=== PATIENT | male | born 1980 | race Caucasian/White ===

== ENCOUNTER → 2020-07-31 | Outpatient (CLI) | payer OTHER ==
--- NOTE | 2020-07-31 08:50 | US ---
EXAMINATION TYPE: US abdomen limited DATE OF EXAM: 07/31/2020 COMPARISON: NONE CLINICAL HISTORY: R19.01 Right upper quadrant abdominal swelling, ma. RUQ palpable lump x 2 weeks RUQ at patient's area of concern: 4.9 x 2.2 x 4.1cm superficial isoechoic area seen with peripheral v ascularity IMPRESSION right upper quadrant subcutaneous mass may reflect lipoma. Clinical correlation is advised and consider CT correlation.:
== END | disposition home or self-care (01) ==
LOC: RADUSWWP 08:09
PROVIDERS: ATTEND Family Medicine
DX: R19.01 Right upper quadrant abdominal swelling, mass and lump (principal)
CPT/HCPCS: 76705

== ENCOUNTER → 2020-09-12 | Outpatient (CLI) | payer OTHER ==
--- NOTE | 2020-09-12 10:40 | CT ---
EXAMINATION TYPE: CT abdomen w con DATE OF EXAM: 09/12/2020 COMPARISON: None HISTORY: Benign lipomatous neoplasm, unspecified CT DLP: 4806.90 mGycm CONTRAST: CT scan of the abdomen is performed with Oral Contrast and with IV Contrast, patient injected with 10 0 ml mL of Isovue 300. FINDINGS: LUNG BASES-: No visible nodule. No infiltrate. LIVER/GB: There is evidence of hepatic steatosis with mild hepatomegaly suggested. No calcified gall stones. No space occupying hepatic lesion. Biliary tree is of normal caliber. PANCREAS: No inflammation. No distinct mass. SPLEEN: No splenic enlargement. No lesion seen. ADRENALS: No nodule. No thickening. KIDNEYS/BLADDER: No hydronephrosis. No nephrolithiasis. 1.5 cm left renal cyst identified. Urinary bladder grossly unremarkable. BOWEL: Normal appendix. Normal bowel caliber. No inflammation. LYMPH NODES: No greater than 1cm abdominal or pelvic lymph nodes are appreciated. AORTA: No significant abnormality. OSSEOUS STRUCTURES: No significant abnormality is seen. OTHER: Right upper quadrant subcutaneous lipoma measures approximately 5 x 2.5 x 4.0 cm. No complicat ing factors identified. IMPRESSION: 1. Right upper quadrant lipoma. 2. Fatty liver. 3. Simple cyst left kidney.
== END | disposition home or self-care (01) ==
LOC: RADCTMAIN 08:44
PROVIDERS: ATTEND Family Medicine
DX: D17.5 Benign lipomatous neoplasm of intra-abdominal organs (principal); K76.0 Fatty (change of) liver, not elsewhere classified; N28.1 Cyst of kidney, acquired
CPT/HCPCS: 74160; Q9967

== ENCOUNTER 2021-11-01 22:48 | Emergency (ER) | payer OTHER ==
[2021-11-02] MEDS ORDERED: IBUPROFEN 600 MG TAB PO STA (00:59)
[2021-11-02] MEDS ORDERED: ACETAMINOPHEN TAB 500 MG TAB PO STA (00:59)
[2021-11-02] MEDS ORDERED: SODIUM CHLORIDE 0.9% 50 ML IVPB ONE (02:15)
[2021-11-02] MEDS ORDERED: SOTROVIMAB (EUA) 500 MG in SODIUM CHLORIDE 0.9% 100 ML IVPB ONE (02:15)
--- NOTE | 2021-11-02 02:24 | ED ---
General Adult HPI - General Chief complaint: Shortness of Breath Stated complaint: Low O2, Covid+ Time Seen by Provider: 11/02/21 00:27 Source: patient, RN notes reviewed, old records reviewed Mode of arrival: ambulatory - History of Present Illness Initial comments: Patient is a 40-year-old male with past medical history remarkable for obesity who presents emergency department concern for COVID-19 pneumonia. Symptoms started on Friday. He had a home test positive on that as well. He has been quarantined. Is been monitoring his pulse ox at home, and noticed that at rest of is 89-90% but it improved with movement. His noted fevers. Wants to be evaluated. Was vaccinated for COVID-19 but has not received booster. His no other acute complaint at this time. Son has similar symptoms. Complains primarily of generalized fatigue, as well as URI symptoms. - Related Data Home Medications Medication Instructions Recorded Confirmed Ibuprofen [Advil] 400 mg PO Q6HR PRN 08/21/16 08/21/16 Previous Rx's Medication Instructions Recorded Doxycycline Monohydrate [Monodox] 100 mg PO Q12HR #28 cap 08/23/16 Albuterol Inhaler [Ventolin Hfa 1 puff INHALATION RT-QID #8 gm 11/02/21 Inhaler] Allergies Allergy/AdvReac Type Severity Reaction Status Date / Time banana Allergy Diarrhea Verified 11/02/21 00:08 Beef Containing Products Allergy Diarrhea Verified 11/02/21 00:08 [Beef] chicken derived [Chicken] Allergy Diarrhea Verified 11/02/21 00:08 chocolate flavor Allergy Diarrhea Verified 11/02/21 00:08 coffee (Coffea arabica) Allergy Diarrhea Verified 11/02/21 00:08 corn Allergy Diarrhea Verified 11/02/21 00:08 Fish Containing Products Allergy Diarrhea Verified 11/02/21 00:08 [Fish] orange Allergy Diarrhea Verified 11/02/21 00:08 soybean Allergy Diarrhea Verified 11/02/21 00:08 Sulfa (Sulfonamide Allergy Rash/Hives Verified 11/02/21 00:08 Antibiotics) sulfamethoxazole Allergy Rash/Hives Verified 11/02/21 00:08 [From Bactrim] tomato Allergy Diarrhea Verified 11/02/21 00:08 trimethoprim [From Bactrim] Allergy Rash/Hives Verified 11/02/21 00:08 wheat Allergy Diarrhea Verified 11/02/21 00:08 yeast, dried Allergy Diarrhea Verified 11/02/21 00:08 Review of Systems ROS Statement: Those systems with pertinent positive or pertinent negative responses have been documented in the HPI. Review of Systems: CONST: Endorses fever EYES: Denies blurry vision ENT: Endorses nasal congestion C/V: Denies Chest pain RESP: Denies shortness of breath GI: Denies abdominal pain : Denies dysuria SKIN: Denies rash. MSK: Denies joint pain. NEURO: Denies headache ROS Other: All systems not noted in ROS Statement are negative. Past Medical History Past Medical History: Pneumonia Additional Past Medical History / Comment(s): IBS, MURMUR, WAS ON THYROID MEDS- DR TOOK HIM OFF, MRSA)NOSTRIL) NOVEMBER 2015 AND RT ARM History of Any Multi-Drug Resistant Organisms: MRSA Date of last positivie culture/infection: 08/21/16 MDRO Source:: ABDOMEN Past Surgical History: Hernia Repair Additional Past Surgical History / Comment(s): COLONOSCOPY, EGD, UMB HERNIA Past Anesthesia/Blood Transfusion Reactions: No Reported Reaction Additional Past Anesthesia/Blood Transfusion Reaction / Comment(s): CLAUSTERPHOBIA Past Psychological History: No Psychological Hx Reported Smoking Status: Never smoker Past Alcohol Use History: Occasional Past Drug Use History: None Reported - Past Family History Father Family Medical History: COPD, CVA/TIA, Myocardial Infarction ([place]) Mother Family Medical History: Thyroid Disorder General Exam - General Exam Comments Initial Comments: General: Appears in no acute distress. Febrile. HEAD: Normal with no signs of head trauma. EYES: PERRLA, EOMI, conjunctiva normal, no discharge. ENT: Hearing grossly intact, normal oropharynx. RESPIRATORY: Clear breath sounds bilaterally. No wheezes, rales, or rhonchi. Not hypoxic. No increased work of breathing. C/V: Regular rate and rhythm. S1 and S2 auscultated, no edema, peripheral pulses 2+ and intact throughout ABD: Abd is soft, nontender, nondistended EXT: Normal range of motion, no obvious deformity SKIN: No rashes or lesions observed on exposed skin. NEURO: Alert and oriented 4. Course Vital Signs 11/02/21 11/02/21 11/02/21 00:03 02:00 03:38 Temperature 100.6 F H 98.5 F Pulse Rate 103 H 85 Respiratory 21 20 18 Rate Blood Pressure 119/72 110/67 O2 Sat by Pulse 94 L 91 L Oximetry 11/02/21 05:00 Temperature 98.2 F Pulse Rate 88 Respiratory 18 Rate Blood Pressure 112/65 O2 Sat by Pulse 92 L Oximetry Medical Decision Making - Medical Decision Making Patient is a 40-year-old male who presents for COVID-19 infection. He is not hypoxic. No increased work of breathing. We will repeat COVID-19 lab testing, and it administer monoclonal antibodies, as he does meet criteria based on the BMI as well as being not fully vaccinated. He was in agreement this plan. No further laboratory studies or imaging are required. He will be given Tylenol Motrin for his fever. Covid is positive. He'll receive monoclonal antibody therapy. He tolerated therapy well. I counseled him on quarantine. He was given an albuterol inhaler for home. He was in agreement this plan. I will provide the patient with a prescription for albuterol. I instructed the patient to follow up with their PCP in the next 3 days. I explained that the patient should return to the emergency department if they experience any worsening symptoms. Strict return precautions were discussed with the patient. The patient expressed understanding of these instructions. I answered all questions that the patient had. The patient was discharged home in [facility] with their prescriptions and follow up information. - Lab Data Lab Results 11/02/21 Range/Units 01:18 Coronavirus (PCR) Detected A (Not Detectd) Disposition Clinical Impression: COVID-19 virus infection Disposition: HOME SELF-CARE Condition: Fair Instructions (If sedation given, give patient instructions): Coronavirus Disease 2019 (COVID-19) Prescriptions: Albuterol Inhaler [Ventolin Hfa Inhaler] 1 puff INHALATION RT-QID #8 gm Is patient prescribed a controlled substance at d/c from ED?: No Referrals: Hollie العراقي MD [Primary Care Provider] - 1-2 days
[2021-11-02 04:15] VITALS: RESP 18
[2021-11-02 05:15] VITALS: BP 112/65; PULSE 88; TEMP 98.2
== END 2021-11-02 05:15 | disposition home or self-care (01) ==
LOC: EC 22:48
DX: U07.1 COVID-19 (principal); Z88.1 Allergy status to other antibiotic agents; Z88.2 Allergy status to sulfonamides
CPT/HCPCS: 87635; 99284

== ENCOUNTER → 2022-05-02 | Outpatient (CLI) | payer OTHER ==
--- NOTE | 2022-05-02 12:32 | P.SLEEP ---
History of Present Illness DATE: 05/02/2022 CONSULTATION/NEW PATIENT EVALUATION HISTORY OF PRESENT ILLNESS/SLEEP-WAKE EVALUATION: 41 year old gentleman had been evaluated in the sleep center for possible obstructive sleep apnea hypopnea syndrome. SLEEP SCHEDULE: Usually sleep schedule on weekdays 9 PM to 5:30 AM], during days of 10 PM to 7:30 AM]. FALLING ASLEEP: No problems with falling asleep, although patient has TV set and bedroom]. DURING SLEEP:Patient sleeps with loud snoring and witnessed episodes of sleep apneas by his . chaka wakes up from sleep more than 5 times with 2 episodes of nocturia] No history of hypnogogical hallucinations, sleep paralysis, or cataplexy.Positive history of sweating, restless leg symptoms and heartburn. DURING THE DAY/WAKE STATE: In the morning patient wake up tired, falling asleep during the day. Positive history of irritability, depression, anxiety, claustrophobia episodes]. [place] sleepiness scale i significantly increased to 17] Usually patient doesn't take naps]. PAST MEDICAL HISTORY: Asthma, acid reflux]. PAST SURGICAL HISTORY: Surgical treatment of umbilical hernia]. MEDICATIONS: Tums.]. SOCIAL HISTORY: Negative for] smoking, alcohol consumption occasional. FAMILY HISTORY:Hypertension, heart problems, snoring, cancer, diabetes, restless leg symptoms]. REVIEW OF SYSTEMS:Loud snoring, multiple awakenings from sleep, sleepiness]. No fevers. No double vision. No recent chest pain. No shortness of breath. No abdominal pain. No bleeding episodes. No blood in urine. No seizure episodes. PHYSICAL EXAMINATION: GENERAL: A pleasant patient without any distress. VITAL SIGNS: B 138/84] , HR62] , R 18] , weigh 356] pounds, heigh 5 ]rosy 10 ]inches, body mass inde 51.0] . HEENT: PERRLA, EOMI. Evaluation of oropharynx showed tongue protrudes midline, low position of soft palate Mallampat 4]. NECK: Supple. No JVD. Thyroid is not palpable. 19-1/4] inches in circumference. LUNGS: Clear to percussion and to auscultation. Good air exchange. No wheezing or rhonchi. HEART: S1, S2 regular. No murmurs, gallops or rubs. ABDOMEN: Soft and nontender. Bowel sounds are present. No organomegaly appreciated. Obese EXTREMITIES: No clubbing or cyanosis. MANAGER DISASTER RECOVERY: Awake, alert, and oriented x3. Cranial nerves 2 to 7 intact. There is no fasciculation or atrophy noted. No focal deficits observed. ASSESSMENT: 1. Loud snoring, witnessed sleep apneas, multiple awakenings from sleep, extremely low position of soft palate Mallampati 4, white neck 19-1/4 inches in circumference, significant sleepiness [place] sleepiness scale increased to 17. Obstructive sleep apnea hypopnea syndrome]. 2. Obesity, body mass index 51]. 3 acid reflux]. 4. History of asthma]. 5 status post surgical treatment of umbilical hernia]. 6. Left for arthritis]. PLAN: 1. Polysomnography for evaluation of patient's breathing during sleep. 2. CPAP/BiPAP titration if sleep study confirms obstructive sleep apnea- hypopnea syndrome. 3. Preferable position during sleep on the side. 4. No driving if patient feels any sleepiness. Patient is aware of civil and criminal liability for unsafe driving. 5. Sleep hygiene with regular sleep time for at least 7.5-8 hours. 6. Aggressive losing weight. Thank you very much for referring this patient for consultation. Sincerely, Daniele Jaeger MD, PhD, FAASM. Diplomat of [place] [employer], Sleep Medicine Board by [place] [employer] [place] [employer] [facility] [place] Past Medical History Past Medical History: Pneumonia Additional Past Medical History / Comment(s): IBS, MURMUR, WAS ON THYROID MEDS- TOOK HIM OFF, MRSA)NOSTRIL) NOVEMBER 2015 AND RT ARM History of Any Multi-Drug Resistant Organisms: MRSA Date of last positivie culture/infection: 08/21/16 MDRO Source:: ABDOMEN Past Surgical History: Hernia Repair Additional Past Surgical History / Comment(s): COLONOSCOPY, EGD, UMB HERNIA Past Anesthesia/Blood Transfusion Reactions: No Reported Reaction Additional Past Anesthesia/Blood Transfusion Reaction / Comment(s): CLAUSTERPHOBIA Past Psychological History: No Psychological Hx Reported Smoking Status: Never smoker Past Alcohol Use History: Occasional Past Drug Use History: None Reported - Past Family History Father Family Medical History: COPD, CVA/TIA, Myocardial Infarction ([place]) Mother Family Medical History: Thyroid Disorder Medications and Allergies Home Medications Medication Instructions Recorded Confirmed Type Ibuprofen [Advil] 400 mg PO Q6HR PRN 08/21/16 08/21/16 History Doxycycline Monohydrate [Monodox] 100 mg PO Q12HR #28 cap 08/23/16 Rx Albuterol Inhaler [Ventolin Hfa 1 puff INHALATION RT-QID #8 gm 11/02/21 Rx Inhaler] Allergies Allergy/AdvReac Type Severity Reaction Status Date / Time banana Allergy Diarrhea Verified 11/02/21 00:08 Beef Containing Products Allergy Diarrhea Verified 11/02/21 00:08 [Beef] chicken derived [Chicken] Allergy Diarrhea Verified 11/02/21 00:08 chocolate flavor Allergy Diarrhea Verified 11/02/21 00:08 coffee (Coffea arabica) Allergy Diarrhea Verified 11/02/21 00:08 corn Allergy Diarrhea Verified 11/02/21 00:08 Fish Containing Products Allergy Diarrhea Verified 11/02/21 00:08 [Fish] orange Allergy Diarrhea Verified 11/02/21 00:08 soybean Allergy Diarrhea Verified 11/02/21 00:08 Sulfa (Sulfonamide Allergy Rash/Hives Verified 11/02/21 00:08 Antibiotics) sulfamethoxazole Allergy Rash/Hives Verified 11/02/21 00:08 [From Bactrim] tomato Allergy Diarrhea Verified 11/02/21 00:08 trimethoprim [From Bactrim] Allergy Rash/Hives Verified 11/02/21 00:08 wheat Allergy Diarrhea Verified 11/02/21 00:08 yeast, dried Allergy Diarrhea Verified 11/02/21 00:08 Sleep Note - Sleep Note Sleep Note: Temperature: Pulse Rate: Respiratory Rate: Blood Pressure: SpO2: Height: Weight: BMI: Neck Circumference:
== END ==
LOC: SLEEP 11:20
PROVIDERS: ATTEND Internal Medicine
DX: G47.33 Obstructive sleep apnea (adult) (pediatric) (principal); E66.9 Obesity, unspecified; Z68.43 Body mass index [BMI] 50.0-59.9, adult; K21.9 Gastro-esophageal reflux disease without esophagitis; J45.909 Unspecified asthma, uncomplicated; Z98.890 Other specified postprocedural states; Z91.018 Allergy to other foods; Z88.2 Allergy status to sulfonamides; Z91.014 Allergy to mammalian meats; Z88.8 Allergy status to other drugs, medicaments and biological substances; Z91.013 Allergy to seafood; Z87.891 Personal history of nicotine dependence
CPT/HCPCS: 99211

== ENCOUNTER → 2023-01-02 | Outpatient (CLI) | payer OTHER ==
--- NOTE | 2023-01-02 16:10 | P.PN ---
Subjective DATE: 01/03/2024 FOLLOW UP VISIT. Patient with obstructive sleep apnea hypopnea syndrome return to sleep center for follow-up visit. Recently patient had sleep study which documented obstructive sleep apnea hypopnea syndrome. Patient was initiated on PAP therapy and today is first visit after treatment was started. Patient was able to use PAP equipment every night for the whole night. I explained results of sleep study stool the patient in details The patient does not have significant problems with the mask and humidification. Patient feels that when he is starting to use CPAP equipment ramp pressure is too low . [place] sleepiness scale is 9, which is in normal range. I checked information from PAP unit. PAP unit pressure 6-15, average 13.9 cm H2O. Usage is 83% and 73 % for more then 4 hours, average 5.5 hours per night. Leak is to 16.9 l/m, which is in acceptable range. Apnea Hypopnea Index is 0.5, which is normal. Ramp starting from 4 cm of water During physical exam: GENERAL: A pleasant patient without any distress. VITAL SIGNS: BP 126/79, HR 92, RR 20 , weight 349.2, temperature 98.2, oxygen saturation at room air 95 . HEENT: PERRLA, EOMI.low position of soft palate, Mallapati 4 . NECK: Supple. No JVD. LUNGS: Clear to percussion and to auscultation. Good air exchange. No wheezing or rhonchi. HEART: S1, S2 regular. ABDOMEN: Soft and nontender. Obese EXTREMITIES: No clubbing or cyanosis. PREDATORY HUNTER: Awake, alert, and oriented x3. No focal deficit. Impressions: 1. Obstructive sleep apnea-hypopnea syndrome. Patient demonstrated good compliance with treatment, benefiting from treatment. 2. Obesity. 3. Acid reflux. 4. History of asthma. 5. Status post surgical treatment of umbilical hernia. Plan: 1. Continue using PAP equipment every night for the whole night. I increased ramp starting pressure to 6 cm of water. 2. To change air filter at least 1-2 times per month. 3. PAP unit should stay lower then position of the head. 4. Advised patient to remove all remaining water from humidifier canister daily and make it dry after each usage. Refill canister with fresh distilled water before each usage. 5. Sleep hygiene with regular time in bed for at least 8 hours. 6. Precautions related to driving. No driving if feel any sleepiness. 7. I will maintain prescription for PAP supplies including mask, tube, filters. 8. Follow up visit in 6 months or earlier if patient has any problems. 9. Watching and losing weight. Thank you very much for allowing me to participate in the management of your patient. Daniele Jaeger MD, PhD, FAASM. Diplomat of [place] [employer], Sleep Medicine Board by [place] [employer] Medical Assistant [facility] [place]
== END | disposition home or self-care (01) ==
LOC: SLEEP 15:38
PROVIDERS: ATTEND Internal Medicine
DX: G47.33 Obstructive sleep apnea (adult) (pediatric) (principal); E66.9 Obesity, unspecified; K21.9 Gastro-esophageal reflux disease without esophagitis; Z98.890 Other specified postprocedural states; Z99.89 Dependence on other enabling machines and devices; Z87.09 Personal history of other diseases of the respiratory system; Z87.891 Personal history of nicotine dependence; Z91.018 Allergy to other foods; Z88.2 Allergy status to sulfonamides

== ENCOUNTER → 2025-03-16 | Outpatient (CLI) | payer MEDICAID ==
--- NOTE | 2025-03-19 08:18 | CT ---
EXAMINATION TYPE: CT abdomen pelvis w con DATE OF EXAM: 03/16/2025 5:05 PM COMPARISON: None. CLINICAL INDICATION: Male, 44 years old with history of R10.84 abd pain, K42.9 umbilical hernia, MID ABDOMINAL PAIN X 2 MONTHS, HISTORY OF UMBILICAL HERNIA TECHNIQUE: Axial images were obtained from above the diaphragm to the pubic rami in the axial plane a t 5 mm thick sections. Reconstructed images are reviewed on the computer in the coronal plane. CONTRAST: 100 ml mL of Isovue 300. Study performed with Oral Contrast DLP: 2691.4 mGycm, Automated exposure control for dose reduction was used. FINDINGS: Limited CT sections are obtained the lung bases. The lung bases are clear. CT ABDOMEN: No suspicious. Umbilical hernia. Soft tissue changes in the periumbilical region appears stable. No herniated loops of bowel are. Liver: Normal Spleen: Normal Pancreas: Normal Adrenal glands: The adrenal glands are normal. Gallbladder: Normal Kidneys: No masses are evident. No hydronephrosis is present. There is a 3.1 cm cyst measuring 0 Ho unsfield units posterior mid left kidney. Delayed images were obtained through the kidneys, which re main unremarkable. Aorta: Vascular calcification is within the aorta. Inferior vena cava: Normal. CT PELVIS: Loops of bowel within the abdomen and pelvis are normal. There are loops of bowel which are incom pletely distended or lack oral contrast limiting their evaluation. Appendix: Normal as visualized. Urinary bladder: Normal. Genitourinary structures: Prostate contains calcifications Osseous structures: No suspicious lytic or sclerotic lesions. IMPRESSION: 1. 1. Left renal cyst. 2. No acute abnormality CT abdomen and pelvis. 3. No anterior abdominal wall hernia changes [facility], , 03/19/2025 8:16 AM
== END | disposition home or self-care (01) ==
LOC: RADCTMAIN 15:04
PROVIDERS: ATTEND Family Medicine
DX: K42.9 Umbilical hernia without obstruction or gangrene (principal); N28.1 Cyst of kidney, acquired
CPT/HCPCS: 74177; Q9967